=== PATIENT | male | born 2000 | race Caucasian/White ===

== ENCOUNTER 2021-03-15 23:11 | Emergency (ER) | payer OTHER, SELFPAY ==
--- NOTE | 2021-03-16 01:21 | ER ---
Nurse's Notes [facility] Name: Gunnar Jolly Jr Age: 20 yrs Sex: Male : 2000 Arrival Date: 03/15/2021 Time: 23:14 Bed 25 Private MD: Diagnosis: Presentation: 03/15 23:53 Chief complaint: Patient states: he has had difficulty breathing, headache, cough, bb diarrhea x 3 days states he is having a hard time sleeping. Coronavirus screen: cough unrelated to allergies, diarrhea, difficulty breathing, headache. Ebola Screen: No symptoms or risks identified at this time. Initial Sepsis Screen: Does the patient meet any 2 criteria? No. Patient's initial sepsis screen is negative. Does the patient have a suspected source of infection? No. Patient's initial sepsis screen is negative. Risk Assessment: Do you want to hurt yourself or someone else? Patient reports no desire to harm self or others. Onset of symptoms was March 12, 2021. 23:53 Method Of Arrival: Ambulatory bb 23:53 Acuity: LIYA 3 bb Triage Assessment: 23:56 General: Appears in no apparent distress. Behavior is calm, cooperative. Pain: bb Complains of pain in chest. Neuro: Level of Consciousness is awake, alert, obeys commands, Oriented to person, place, time, situation. Cardiovascular: Capillary refill < 3 seconds Patient's skin is warm and dry. Respiratory: Reports cough that is pain with respiration Respiratory effort is even, unlabored, Respiratory pattern is regular, Onset: The symptoms/episode began/occurred 3 days ago, the patient has mild shortness of breath. Historical: - Allergies: 23:56 PENICILLINS; bb - Home Meds: 23:56 None [Active]; bb - PMHx: 23:56 Asthma; bb - PSHx: 23:56 None; bb - Immunization history:: Adult Immunizations up to date. - Social history:: Smoking status: Patient denies any tobacco usage or history of. Vital Signs: 23:53 BP 131 / 86; Pulse 87; Resp 16 S; Temp 99(O); Pulse Ox 100% on R/A; Weight 127.01 kg bb (R); Height 6 ft. 4 in. (193.04 cm) (R); Pain 6/10; 23:53 Body Mass Index 34.08 (127.01 kg, 193.04 cm) bb ED Course: 23:14 Patient arrived in ED. bp1 23:56 Triage completed. bb 23:56 Arm band placed on Patient placed in waiting room, Patient notified of wait time. bb Family accompanied patient. 03/16 01:15 Hero Medel MD is Attending Physician. esteban Administered Medications: No medications were administered Outcome: 01:20 Patient left the ED. bb Signatures: Hannah Torres RN RN Hero Levin MD MD ma2 Lynne Nixon bp1
[2021-03-16 01:36] VITALS: BP 131/86; TEMP 99; O2SAT 100
== END 2021-03-16 01:20 | disposition left against medical advice (07) ==
LOC: ER 23:11
DX: Z53.21 Procedure and treatment not carried out due to patient leaving prior to being seen by health care provider (principal)
CPT/HCPCS: 99281

== ENCOUNTER 2023-05-09 18:47 | Emergency (ER) | payer SELFPAY ==
[2023-05-09] MEDS ORDERED: NA CHLORIDE 0.9% 1,000 ML ONE (20:20)
[2023-05-09 20:24] LABS: Absolute Lymphocytes (CBC) 1.8 K/uL (0.7-4.9); Hematocrit 45.1 % (39.6-49.0); Lymphocytes % 12.6 % (15.3-44.8); MCV 85.1 fL (80-100); MPV 8.9 fL (7.6-11.3); Platelets 224 thou/uL (152-406); RBC Red Blood Cell Count 5.29 M/uL (4.33-5.43)
[2023-05-09 20:42] LABS: Bilirubin Total 0.3 mg/dL (0.2-1.0); Potassium 3.6 mEq/L (3.5-5.1); Protein, Total 8.1 g/dL (6.4-8.2)
--- NOTE | 2023-05-09 21:23 | RAD REPORT ---
EXAM DESCRIPTION: CTAbdomen Pelvis W Contrast - 05/09/2023 9:15 pm CLINICAL HISTORY: Abdominal pain. ABD PAIN COMPARISON: No comparisons TECHNIQUE: Biphasic CT imaging of the abdomen and pelvis was performed with 100 ml non-ionic IV cont rast. All CT scans are performed using dose optimization technique as appropriate and may include automated exposure control or mA/KV adjustment according to patient size. FINDINGS: The lung bases are clear. The liver, spleen, pancreas, adrenal glands and kidneys are within normal limits. No bowel obstruction, free air, free fluid or abscess. Mild diffuse thickening of the colon noted. Th e appendix is normal. Mildly prominent lymph nodes in the small bowel mesenteric and right lower brisa drant. No suspicious bony findings. IMPRESSION: Mild diffuse colitis is likely present.
[2023-05-09] MEDS ORDERED: DICYCLOMINE HCL 10 MG CAP ONE (21:37)
[2023-05-09] MEDS ORDERED: ONDANSETRON 4 MG/2 ML VIAL ONE (21:37)
--- NOTE | 2023-05-09 21:42 | ER ---
Nurse's Notes [facility] Name: Gunnar Jolly Jr Age: 22 yrs Sex: Male : 2000 Arrival Date: 05/09/2023 Time: 18:47 Bed 11 Private MD: Diagnosis: Infectious gastroenteritis and colitis, unspecified Presentation: 05/09 19:01 Chief complaint: Patient states: Abdominal pain, diarrhea and nausea onset yesterday. cm10 Pt states 2 episodes of blood in his stool. Coronavirus screen: Vaccine status: Patient reports being unvaccinated. Client denies travel out of the [place] in the last 14 days. Ebola Screen: Patient denies travel to an Ebola-affected area in the 21 days before illness onset. No symptoms or risks identified at this time. Initial Sepsis Screen: Does the patient meet any 2 criteria? HR > 90 bpm. No. Patient's initial sepsis screen is negative. Does the patient have a suspected source of infection? No. Patient's initial sepsis screen is negative. Risk Assessment: Do you want to hurt yourself or someone else? Patient reports no desire to harm self or others. Onset of symptoms was May 09, 2023. 19:01 Method Of Arrival: Ambulatory cm10 19:01 Acuity: LIYA 3 cm10 Triage Assessment: 19:05 General: Appears comfortable, Behavior is calm, cooperative. Pain: Complains of pain in ha1 abdomen Pain does not radiate. Pain currently is 5 out of 10 on a pain scale. Quality of pain is described as crampy. Historical: - Allergies: 19:04 PENICILLINS; cm10 - PMHx: 19:04 Asthma; cm10 - Immunization history:: Adult Immunizations unknown. - Social history:: Smoking status: Patient reports the use of cigarette tobacco products, denies chronic smoking, but will smoke occasionally. Screenin:05 [facility] ED Fall Risk Assessment (Adult) History of falling in the last 3 months, ha1 including since admission No falls in past 3 months (0 pts) Confusion or Disorientation No (0 pts) Intoxicated or Sedated No (0 pts) Impaired Gait No (0 pts) Mobility Assist Device Used No (0 pt) Altered Elimination No (0 pt) Score/Fall Risk Level 0 - 2 = Low Risk Oriented to surroundings, Maintained a safe environment, Hourly rounding (assess needs \T\ fall precautionary measures) done. Abuse screen: Denies threats or abuse. Denies injuries from another. Nutritional screening: No deficits noted. Tuberculosis screening: No symptoms or risk factors identified. Assessment: 19:05 General: Appears comfortable, Behavior is calm, cooperative. Pain: Complains of pain in ha1 abdomen Pain does not radiate. Pain currently is 5 out of 10 on a pain scale. Quality of pain is described as crampy. Neuro: Level of Consciousness is awake, alert, obeys commands, Oriented to person, place, time, situation. Cardiovascular: Patient's skin is warm and dry. Respiratory: Airway is patent Respiratory effort is even, unlabored, Respiratory pattern is regular, symmetrical. GI: Abdomen is round obese, Bowel sounds present X 4 quads. Abd is soft and non tender Reports lower abdominal pain, diarrhea, nausea. Musculoskeletal: Circulation, motion, and sensation intact. Range of motion: intact in all extremities. 20:05 Reassessment: Patient and/or family updated on plan of care and expected duration. Pain ha1 level reassessed. Patient is alert, oriented x 3, equal unlabored respirations, skin warm/dry/pink. 21:05 Reassessment: Patient and/or family updated on plan of care and expected duration. Pain ha1 level reassessed. Patient is alert, oriented x 3, equal unlabored respirations, skin warm/dry/pink. 22:00 Reassessment: Patient and/or family updated on plan of care and expected duration. Pain ha1 level reassessed. Patient is alert, oriented x 3, equal unlabored respirations, skin warm/dry/pink. Vital Signs: 19:01 BP 168 / 91; Pulse 98; Resp 16; Temp 98.8; Pulse Ox 98% ; Weight 147.42 kg; Height 6 cm10 ft. 3 in. ; Pain 10/10; 20:30 BP 134 / 78; Pulse 89; Resp 18 S; Pulse Ox 100% on R/A; ha1 21:15 BP 135 / 71; Pulse 90; Resp 18 S; Pulse Ox 100% on R/A; ha1 19:01 Body Mass Index 40.62 (147.42 kg, 190.5 cm) cm10 19:01 Pain Scale: Adult cm10 ED Course: 18:50 Patient arrived in ED. kj1 18:53 Hoda Burnett FNP-C is [facility]. kb 18:53 Ruthie Pablo MD is Attending Physician. kb 19:04 Triage completed. cm10 19:05 Arm band placed on Patient placed in waiting room. cm10 19:05 Patient has correct armband on for positive identification. Placed in gown. Bed in low ha1 position. Call light in reach. Side rails up X 1. 19:59 COVID-19 SARS RT PCR Sent. cm10 19:59 CBC with Diff Sent. cm10 19:59 CMP Sent. cm10 20:00 Lipase Sent. cm10 20:00 Initial lab(s) drawn, by me, sent to lab. Inserted saline lock: 20 gauge in right cm10 antecubital area, using aseptic technique. Blood collected. 20:00 Missed attempt(s): 20 gauge in right antecubital area. Bleeding controlled, band aid cm10 applied, catheter tip intact. 20:08 Tatyana Granados, RN is Primary Nurse. ha1 21:17 CT Abd/Pelvis - IV Contrast Only In Process Unspecified. EDMS 22:00 Provided Education on: medication administration and colitis . ha1 22:00 No provider procedures requiring assistance completed. ha1 22:00 IV discontinued, intact, bleeding controlled, No redness/swelling at site. Pressure ha1 dressing applied. Administered Medications: 20:00 Drug: NS 0.9% IV 1000 ml Route: IV; Rate: 1 bolus; Site: right antecubital; ha1 22:00 Follow up: Response: No adverse reaction; IV Status: Completed infusion; IV Intake: ha1 1000ml 21:15 Drug: Ondansetron IVP 4 mg Route: IVP; Site: right antecubital; ha1 21:30 Follow up: Response: No adverse reaction ha1 21:15 Drug: Dicyclomine PO 20 mg Route: PO; ha1 21:30 Follow up: Response: No adverse reaction ha1 21:40 Drug: Ciprofloxacin PO 500 mg Route: PO; ha1 22:00 Follow up: Response: No adverse reaction ha1 21:40 Drug: metroNIDAZOLE PO 500 mg Route: PO; ha1 22:00 Follow up: Response: No adverse reaction ha1 Medication: 22:00 VIS not applicable for this client. ha1 Intake: 22:00 IV: 1000ml; Total: 1000ml. ha1 Outcome: 21:41 Discharge ordered by . mana 22:00 Patient left the ED. ha1 22:00 Discharged to home ambulatory, with family. ha1 22:00 Condition: stable 22:00 Discharge instructions given to patient, family, Instructed on discharge instructions, follow up and referral plans. medication usage, Demonstrated understanding of instructions, follow-up care, medications, Prescriptions given X 4. Signatures: Dispatcher [employer] EDNY Hoda Burnett, ROBERT-C [employer]-Jessica Harley kj1 Tatyana Granados, RN RN 1 Gina Leon, RN RN cm10
--- NOTE | 2023-05-09 21:42 | EDPHYS ---
Physician Documentation [facility] Name: Gunnar Jolly Jr Age: 22 yrs Sex: Male : 2000 Arrival Date: 05/09/2023 Time: 18:47 Bed 11 Private MD: ED Physician Ruthie Pablo HPI: 05/09 21:39 This 22 yrs old Male presents to ER via Ambulatory with complaints of Abdominal Pain, kb Bloody Stools. 21:39 The patient presents with abdominal pain that is diffuse. The patient has not kb experienced similar symptoms in the past. 21:40 Onset: The symptoms/episode began/occurred yesterday. The symptoms do not radiate. kb Associated signs and symptoms: Pertinent positives: diarrhea, nausea. The symptoms are described as crampy. Modifying factors: The symptoms are alleviated by nothing, the symptoms are aggravated by nothing. Severity of pain: At its worst the pain was moderate in the emergency department the pain is unchanged. The patient has not recently seen a physician. Historical: - Allergies: 19:04 PENICILLINS; cm10 - PMHx: 19:04 Asthma; cm10 - Immunization history:: Adult Immunizations unknown. - Social history:: Smoking status: Patient reports the use of cigarette tobacco products, denies chronic smoking, but will smoke occasionally. ROS: 21:39 Constitutional: Negative for fever, chills, and weight loss. kb 21:39 Abdomen/GI: Positive for nausea, diarrhea, abdominal cramps. 21:39 All other systems are negative. Exam: 21:39 Constitutional: This is a well developed, well nourished patient who is awake, alert, kb and in no acute distress. Head/Face: Normocephalic, atraumatic. ENT: Moist Mucous membranes Cardiovascular: Regular rate and rhythm with a normal S1 and S2. No gallops, murmurs, or rubs. No pulse deficits. Respiratory: Respirations even and unlabored. No increased work of breathing. Talking in full sentences Abdomen/GI: Soft, non-tender. No distention Skin: Warm, dry with normal turgor. Normal color. MS/ Extremity: Pulses equal, no cyanosis. Neurovascular intact. Full, normal range of motion. Neuro: Awake and alert, GCS 15, oriented to person, place, time, and situation. Moves all extremities. Normal gait. Vital Signs: 19:01 BP 168 / 91; Pulse 98; Resp 16; Temp 98.8; Pulse Ox 98% ; Weight 147.42 kg; Height 6 cm10 ft. 3 in. ; Pain 10/10; 20:30 BP 134 / 78; Pulse 89; Resp 18 S; Pulse Ox 100% on R/A; ha1 21:15 BP 135 / 71; Pulse 90; Resp 18 S; Pulse Ox 100% on R/A; ha1 19:01 Body Mass Index 40.62 (147.42 kg, 190.5 cm) cm10 19:01 Pain Scale: Adult cm10 MDM: 18:58 Patient medically screened. kb 21:39 Differential diagnosis: diverticulitis, gastritis, GI Bleed, non-specific abd pain, kb colitis. Data reviewed: vital signs, nurses notes. Counseling: I had a detailed discussion with the patient and/or guardian regarding the historical points, exam findings, and any diagnostic results supporting the discharge/admit diagnosis, lab results, radiology results, the need for outpatient follow up, a family practitioner, to return to the emergency department if symptoms worsen or persist or if there are any questions or concerns that arise at home. 05/09 19:03 Order name: CBC with Diff; Complete Time: 20:26 kb 05/09 19:03 Order name: CMP; Complete Time: 20:51 kb 05/09 19:03 Order name: Lipase; Complete Time: 20:51 kb 05/09 19:03 Order name: COVID-19 SARS RT PCR; Complete Time: 20:51 kb 05/09 20:52 Order name: CT Abd/Pelvis - IV Contrast Only; Complete Time: 21:29 kb 05/09 19:03 Order name: IV Saline Lock; Complete Time: 19:59 kb 05/09 19:03 Order name: Labs collected and sent; Complete Time: 19:59 kb Administered Medications: 20:00 Drug: NS 0.9% IV 1000 ml Route: IV; Rate: 1 bolus; Site: right antecubital; ha1 22:00 Follow up: Response: No adverse reaction; IV Status: Completed infusion; IV Intake: ha1 1000ml 21:15 Drug: Ondansetron IVP 4 mg Route: IVP; Site: right antecubital; ha1 21:30 Follow up: Response: No adverse reaction ha1 21:15 Drug: Dicyclomine PO 20 mg Route: PO; ha1 21:30 Follow up: Response: No adverse reaction ha1 21:40 Drug: Ciprofloxacin PO 500 mg Route: PO; ha1 22:00 Follow up: Response: No adverse reaction ha1 21:40 Drug: metroNIDAZOLE PO 500 mg Route: PO; ha1 22:00 Follow up: Response: No adverse reaction ha1 Disposition Summary: 05/09/23 21:41 Discharge Ordered Location: Home kb Condition: Stable kb Diagnosis - Infectious gastroenteritis and colitis, unspecified kb Followup: kb - With: Emergency Department - When: As needed - Reason: Worsening of condition Followup: kb - With: Private Physician - When: 2 - 3 days - Reason: Recheck today's complaints, Continuance of care, Re-evaluation by your physician Discharge Instructions: - Discharge Summary Sheet kb - Food Choices to Help Relieve Diarrhea, Adult kb - Colitis kb Forms: - Medication Reconciliation Form kb - Thank You Letter kb - Antibiotic Education kb - Prescription Opioid Use kb - Patient Portal Instructions kb - Leadership Thank You Letter kb Prescriptions: - Cipro 500 mg Oral Tablet - take 1 tablet by ORAL route every 12 hours for 10 days; 20 tablet; Refills: 0, kb Product Selection Permitted - Flagyl 500 mg Oral Tablet - take 1 tablet by ORAL route every 8 hours for 10 days; 30 tablet; Refills: 0, kb Product Selection Permitted - Zofran 4 mg Oral Tablet - take 1 tablet by ORAL route every 6 hours As needed; 12 tablet; Refills: 0, kb Product Selection Permitted - dicyclomine 20 mg Oral Tablet - take 1 tablet by ORAL route 4 times per day As needed; 20 tablet; Refills: 0, kb Product Selection Permitted Signatures: Dispatcher [employer] Hoda Mendez FNP-C FNP-Ckb Ayala, Heidy RN RN ha1 Gina Leon RN RN cm10
[2023-05-09] MEDS ORDERED: metroNIDAZOLE 500 MG TABLET ONE (22:01)
[2023-05-09] MEDS ORDERED: CIPROFLOXACIN HCL 500 MG TAB ONE (22:01)
[2023-05-09 22:51] VITALS: TEMP 98.8
[2023-05-09 23:22] VITALS: O2SAT 100
[2023-05-09 23:23] VITALS: BP 135/71
== END 2023-05-09 22:00 | disposition home or self-care (01) ==
LOC: ER 18:47
DX: A09 Infectious gastroenteritis and colitis, unspecified (principal)
CPT/HCPCS: 36415; 74177; 80053; 83690; 85025; 87635; J2405; J7030; Q9967